=== PATIENT | female | born 2000 | race Caucasian/White ===

== ENCOUNTER 2018-01-20 19:10 | Inpatient (IN) | payer OTHER, MEDICAID ==
[2018-01-20] MEDS ORDERED: DOCUSATE SODIUM 100 MG CAP PO (22:00)
[2018-01-20] MEDS: MAGNESIUM SULFATE 4 GM/100 ML 100 ML IV (22:55)
[2018-01-20] MEDS: LACTATED RINGER'S 1,000 ML IV ×2 (22:58→23:00)
[2018-01-20 23:14] LABS: ADD MAN DIFF? NO
[2018-01-20 23:20] LABS: BASOPHILS % 0.3 % (0.0-2.0); EOSINOPHILS # 0.2 10^3/ul (0.0-0.5); EOSINOPHILS % 1.9 % (0.0-7.0); HEMOGLOBIN 11.9 g/dl (12.0-16.0); MEAN CORPUSCULAR HEMOGLOBIN 29.2 pg (29.0-33.0); MEAN CORPUSCULAR HGB CONC 33.1 g/dl (32.0-37.0); MEAN CORPUSCULAR VOLUME 88.2 fl (72.0-104.0); MEAN PLATELET VOLUME 11.7 fl (7.4-10.4); MONOCYTES % 9.2 % (0.0-13.0); NEUTROPHIL # 7.9 10^3/ul (1.6-7.5); PLATELET COUNT 217 10^3/UL (140-415); RED BLOOD COUNT 4.08 10^6/ul (4.20-5.40); RED CELL DISTRIBUTION WIDTH 13.6 % (11.5-14.5)
[2018-01-20 23:20] LABS: WHITE BLOOD COUNT 11.3 10^3/ul (4.8-10.8)
[2018-01-20] MEDS: MAGNESIUM SULFATE 20 GM/500 ML 500 ML IV (23:35)
[2018-01-21] MEDS: BETAMET NA PHOS/AC(6 MG/ML) 5ML INJ IM (00:40)
[2018-01-21 01:11] LABS: ADD UMIC YES; UR ASCORBIC ACID NEGATIVE (NEGATIVE); UR BACTERIA FEW /HPF (NONE SEEN); UR BILIRUBIN (Dip) NEGATIVE (NEGATIVE); UR BLOOD (Dip) 1+ mg/dL (NEGATIVE); UR CLARITY CLEAR (CLEAR); UR COLOR COLORLESS (YELLOW); UR GLUCOSE (Dip) NEGATIVE (NEGATIVE); UR KETONES (Dip) NEGATIVE (NEGATIVE); UR LEUKOCYTE ESTERASE (Dip) NEGATIVE Leu/ul (NEGATIVE); UR NITRITE (Dip) NEGATIVE (NEGATIVE); UR RBC 0 /HPF (0-5); UR SPECIFIC GRAVITY (Dip) 1.002 (1.003-1.030); UR TOTAL PROTEIN (Dip) NEGATIVE (NEGATIVE); UR UROBILINOGEN (Dip) NEGATIVE (NEGATIVE); UR WBC 0 /HPF (0-5)
[2018-01-21 01:28] LABS: MAGNESIUM 4.7 mg/dl (1.7-2.5)
[2018-01-21] MEDS: AMPICILLIN 2 GM/NS (PMX) 100 ML IV (04:24)
[2018-01-21] MEDS: LACTATED RINGER'S 1,000 ML IV (08:00)
[2018-01-21] MEDS ORDERED: MISOPROSTOL 200 MCG TAB PR ×2 (08:00→10:00)
[2018-01-21] MEDS ORDERED: BUTORPHANOL 2 MG INJ IV (08:00)
[2018-01-21] MEDS ORDERED: CARBOPROST 250 MCG INJ IM ×2 (08:00→10:00)
[2018-01-21] MEDS ORDERED: OXYCODONE/ACETAMINOPHEN (5/325) TAB PO (08:00)
[2018-01-21] MEDS ORDERED: OXYTOCIN 30 UNITS/LR 500 ML IV ×2 (08:00→10:00)
[2018-01-21] MEDS ORDERED: METHYLERGONOVINE 0.2 MG INJ IM ×2 (08:00→10:00)
[2018-01-21] MEDS: OXYTOCIN 30 UNITS/LR 500 ML IV ×3 (08:01→09:44)
[2018-01-21] MEDS: LIDOCAINE 1% (MPF) 30 ML INJ INJ (08:14)
[2018-01-21 08:43] LABS: ADD MAN DIFF? NO
[2018-01-21 08:48] LABS: BASOPHILS % 0.2 % (0.0-2.0); EOSINOPHILS % 0.1 % (0.0-7.0); HEMATOCRIT 38.2 % (37.0-47.0); HEMOGLOBIN 12.7 g/dl (12.0-16.0); LYMPHOCYTES # 1.3 10^3/ul (0.8-2.9); LYMPHOCYTES % 10.3 % (18.0-55.0); MEAN CORPUSCULAR HEMOGLOBIN 29.6 pg (29.0-33.0); MEAN CORPUSCULAR HGB CONC 33.2 g/dl (32.0-37.0); MONOCYTE # 0.3 10^3/ul (0.3-0.9); MONOCYTES % 2.3 % (0.0-13.0); NEUTROPHIL # 11.2 10^3/ul (1.6-7.5); NEUTROPHILS % 86.5 % (30.0-74.0); PLATELET COUNT 221 10^3/UL (140-415); RED BLOOD COUNT 4.29 10^6/ul (4.20-5.40); RED CELL DISTRIBUTION WIDTH 13.7 % (11.5-14.5)
[2018-01-21] MEDS ORDERED: PRENATAL VITAMIN PO (09:00)
[2018-01-21 09:11] LABS: INR 0.96; PARTIAL THROMBOPLASTIN TIME 26.4 Sec (25.0-35.0); PROTIME 12.9 Sec (11.9-14.9)
[2018-01-21] MEDS: IBUPROFEN 600 MG TAB PO ×4 (09:31→23:40)
[2018-01-21] MEDS ORDERED: OXYCODONE/ASPIRIN (4.88/325) TAB PO (10:00)
[2018-01-21] MEDS ORDERED: ZOLPIDEM 5 MG TAB PO (10:00)
[2018-01-21] MEDS ORDERED: NACL 0.9% 3 ML SYG IV (10:00)
[2018-01-21] MEDS ORDERED: SENNA/DOCUSATE NA (8.6MG/50MG) TAB PO (10:00)
[2018-01-21 17:27] LABS: HEPATITIS B SURFACE ANTIGEN NEGATIVE (NEGATIVE)
[2018-01-21] MEDS: LANOLIN 7 GM TUBE TOP (18:05)
[2018-01-21] MEDS: WITCH HAZEL/GLYCERIN PAD PR (18:05)
[2018-01-21] MEDS: SENNA/DOCUSATE NA (8.6MG/50MG) TAB PO (21:16)
[2018-01-21 21:59] LABS: RAPID PLASMA REAGIN NONREACTIVE (NR)
[2018-01-22] MEDS: IBUPROFEN 600 MG TAB PO ×3 (05:37→17:44)
[2018-01-22 09:01] LABS: ADD MAN DIFF? NO
[2018-01-22 09:03] LABS: WHITE BLOOD COUNT 13.6 10^3/ul (4.8-10.8)
[2018-01-22 09:03] LABS: BASOPHILS % 0.2 % (0.0-2.0); EOSINOPHILS # 0.1 10^3/ul (0.0-0.5); EOSINOPHILS % 0.8 % (0.0-7.0); HEMATOCRIT 29.9 % (37.0-47.0); LYMPHOCYTES # 2.3 10^3/ul (0.8-2.9); MEAN CORPUSCULAR HEMOGLOBIN 30.1 pg (29.0-33.0); MEAN CORPUSCULAR HGB CONC 33.4 g/dl (32.0-37.0); MEAN CORPUSCULAR VOLUME 90.1 fl (72.0-104.0); MEAN PLATELET VOLUME 12.2 fl (7.4-10.4); MONOCYTE # 1.1 10^3/ul (0.3-0.9); NEUTROPHIL # 9.9 10^3/ul (1.6-7.5); NEUTROPHILS % 73.3 % (30.0-74.0); PLATELET COUNT 196 10^3/UL (140-415); RED BLOOD COUNT 3.32 10^6/ul (4.20-5.40); RED CELL DISTRIBUTION WIDTH 14.3 % (11.5-14.5)
[2018-01-22] MEDS: SENNA/DOCUSATE NA (8.6MG/50MG) TAB PO ×2 (09:51→21:00)
[2018-01-23] MEDS: IBUPROFEN 600 MG TAB PO ×3 (04:24→11:41)
[2018-01-23] MEDS: SENNA/DOCUSATE NA (8.6MG/50MG) TAB PO (08:55)
[2018-01-23] MEDS: DIPHTH/TET/ACEL PERTUSS (ADULT) 0.5 ML VIAL IM* (09:07)
== END 2018-01-23 15:50 | disposition home or self-care (01) | DRG 775 ==
LOC: OBT 19:10 → L-D 19:12 → OBT 21:10 → L-D 21:10 → PP1 01-21 09:46
PROVIDERS: Obstetrics & Gynecology
PROC: 10E0XZZ Delivery of Products of Conception, External Approach (ICD-10-PCS; principal; 2018-01-21)
PROC: 0UQGXZZ Repair Vagina, External Approach (ICD-10-PCS; 2018-01-21)
PROC: 3E033VJ Introduction of Other Hormone into Peripheral Vein, Percutaneous Approach (ICD-10-PCS; 2018-01-21)
DX: O71.4 Obstetric high vaginal laceration alone (principal); O60.14X0 Preterm labor third trimester with preterm delivery third trimester, not applicable or unspecified; Z3A.34 34 weeks gestation of pregnancy; Z37.0 Single live birth
CPT/HCPCS: 76815; 76817; 81001; 83735; 85025; 85610; 85730; 86592; 86850; 86900; 86901; 87081; 87340; 87591; 99464